=== PATIENT | female | born 1965 | race Caucasian/White ===

== ENCOUNTER → 2020-01-01 11:04 | Outpatient (BNVA) | payer OTHER, SELFPAY | PROVIDERS: Family Provider Family Medicine; Visit Provider Obstetrics & Gynecology | DX: R32 Unspecified urinary incontinence (principal) | CPT/HCPCS: 81000 ==

== ENCOUNTER 2020-01-30 06:15 | Day surgery (SDC) | payer OTHER, SELFPAY ==
[2020-01-28 12:02] VITALS: BMI 25.0
--- NOTE | 2020-01-28 12:18 | P.ANESASSM_ITS ---
Pre-Anesthetic Assessment Pre-Anesthetic Assessment: Height/Weight: Height 1.68 m Weight 70.307 kg Preop Diagnosis: Incontinence Proposed Procedure: Operation Date: 01/30/20 08:00 Proposed Procedures p midurethral single incision sling 67987 R32(Not Applicable) - Addison Alba MD Familial anesthetic complications: None Social: Social History: No alcohol and No tobacco Exam: Pre-Anes Outpt Exam: alert, oriented x 3, clear to auscultation rina aterally and regular rate & rhythm Airway: Cervical ROM: WNL MP: 2 Dentition: Full Pulmonary: Pulmonary: None reported CV/HEM: CV/HEM: None reported : : None reported Hepatic: Hepatic: None reported Musc/skel: Musc/skel: Lower Back Pain Neuropsych: Neuropsych: None reported Anesthetic Plan: ASA status: 1 Anesthesia: General Risk of > 500 ml blo od loss (7ml/kg in children): No PFSH Anesthesia PFSH: Medical History Anxiety Since 2018 controlled on medication by primary care provider No pertinent past medical history Denies: Heart, liver, lung, thyroid problems, diabetes, bleeding/clotting disorders, DVT/PE. PCP: Dr. Wayne Surgical History S/P hysterectomy Thinks it was a vaginal hysterectomy---[place] [address] Osorio due to prolapse and cysts. Ovaries were spared. S/P wisdom tooth extraction Status post surgery 1995-bladder prolapse surgery-no mesh was used Status post surgery Surgery on finger on the right hand. 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
[2020-01-30] VITALS (15 sets, daily range): BP systolic 105–150; BP diastolic 47–91; PULSE 49–84; RESP 12–18; TEMP 36.1–36.9; O2SAT 49–100
[2020-01-30 06:58] LABS: Basophils % 0.3 %; Eosinophils # 0.2 10^3/uL (0.0-0.8); Eosinophils % 2.8 %; Hematocrit 44.4 % (37.0-47.0); Hemoglobin 14.6 g/dL (11.5-15.3); Lymphocytes # 2.3 10^3/uL (0.8-4.8); Lymphocytes % 34.5 %; Mean Corpuscular HGB Conc 32.9 g/dL (30.0-36.0); Mean Corpuscular Hemoglobin 30.2 pg (28.0-34.0); Mean Corpuscular Volume 91.7 fL (81-99); Mean Platelet Volume 11.1 fL (7.4-10.4); Monocytes # 0.3 10^3/uL (0.2-0.9); Monocytes % 4.7 %; Neutrophils # 3.75 10^3/uL (1.8-7.7); Neutrophils % 57.4 %; Nucleated Red Blood Cells % 0 %; Platelet Count 245 10^3/cmm (130-400); Red Blood Count 4.84 10^6/uL (4.1-5.3); Red Cell Distribution Width 12.3 % (12.1-15.1); White Blood Count 6.5 10^3/uL (4.0-10.0)
[2020-01-30] MEDS: midazolam 1 mg/mL INJ 2 mL 2 MG IVP (07:07)
[2020-01-30] MEDS: sodium chloride 0.9% 1,000 ML 30 ML IV (07:07)
--- NOTE | 2020-01-30 07:15 | W.PM.OPSUD ---
Surgery/Procedure H&P Update DATE OF PROCEDURE: January 30, 2020 DATE H&P PERFORMED: 01/28/20 H&P UPDATE INFORMATION: I have reviewed H&P completed within last 30 days, I have examined patient prior to procedure, No changes to prior documentation and H&P is in [facility] EMR on date indicated PREOP DIAGNOSIS: stress incontinence PLANNED PROCEDURE: Operation Date: 01/30/20 08:00 Proposed Procedures p midurethral single incision sling 35910 R32(Not Applicable) - Addison Mcclain MD
--- NOTE | 2020-01-30 08:03 | P.ANESUD_ITS ---
Pre-Anesthetic Update Pre-Anesthetic Assessment: Date of Surgery/Procedure: 01/30/20 Preop Shalonda gnosis: stress incontinence Proposed Procedure: Operation Date: 01/30/20 08:00 Proposed Procedures p midurethral single incision sling 29395 R32(Not Applicable) - Addison Alba MD Any changes to Pre-Anesthetic Assessment?: No Last Intake: Intake Last Liquid Date 01/29/20 Last Liquid Time 21:00 Last Solid Date 01/29/20 Last Solid Time 21:00 Labs Last 48hrs: Laboratory Results - last 48 hr 01/30/20 06:48 WBC 6.5 RBC 4.84 Hgb 14.6 Hct 44.4 MCV 91.7 MCH 30.2 MCHC 32.9 RDW 12.3 Plt Count 245 MPV 11.1 H Neut % (Auto) 57.4 Lymph % (Auto) 34.5 [place] % (Auto) 4.7 Eos % (Auto) 2.8 Baso % (Auto) 0.3 Neut # (Auto) 3.75 Lymph # (Auto) 2.3 [place] # (Auto) 0.3 Eos # (Auto) 0.2 Baso # (Auto) 0.0 Nucleated RBC % (a uto) 0 Nucleated RBCs # 0.0 Vitals: Temperature 98.2 F 01/30/20 06:24 Temperature Source Temporal Artery S can 01/30/20 06:24 Pulse Rate 84 01/30/20 06:24 Pulse Rhythm 01/30/20 06:24 Pulse Strength 3+ Normal 01/30/20 06:24 Respiratory Rate 18 01/30/20 06:24 Blood Pressure 150/91 01/30/20 06:24 Blood Pressure Hannah n 110 01/30/20 06:24 Pulse Oximetry 100 01/30/20 06:24 Oxygen Delivery Me thod 01/30/20 06:24 Exam: Pre-Anes Outpt Exam: alert, oriented x 3, clear to auscultation bilaterally and regular rate & rhythm Cardiac Studies: No Data to Display
[2020-01-30] MEDS: vasopressin 20 unit/mL INJ INJECTION (08:20)
[2020-01-30] MEDS: fentaNYL 50 mcg/mL INJ 2mL IVP ×2 (09:02→09:07)
--- NOTE | 2020-01-30 10:00 | PM.OP ---
Operative Report Date of procedure: January 30, 2020 OPERATIVE REPORT Date of surgery:01/30/2020 Date of dictation: 01/30/2020 Preoperative diagnosis: Stress urinary incontinence Postoperative diagnosis/findings: Same, urethral hypermobility, grade 1 through 2 cystocele, grade 01 rectocele, grade 0-1 vault prolapse. On cystoscopy bilateral ureteral jets noted, no lesions defect or suture/mesh noted in bladder or urethra. Procedure done: Single incision suburethral sling Specimens removed/disposition of specimens: None Surgeon: Dr. Addison Roldan Ob/Gyn Physician: Jeanne Anesthesia: General endotracheal tube anesthesia Estimated blood loss: Less than 25 ml Intravenous fluids: 900 mL of LR Urine output: 300 ml clear urine at end of procedure Medications: As per anesthesia records, Pitressin Complications: None, patient was extubated and taken to the recovery room in a stable condition PROCEDURE: After consents were obtained, she was taken to the operating room where she was placed under general endotracheal tube anesthesia without any difficulty. She was placed supine on the table in lithotomy position. Her legs were placed in stirrups and care was taken to avoid pressure points. Exam under anesthesia revealed findings discussed above. She was then prepped and draped in usual sterile fashion. Sanchez catheter was placed and mid urethral point was marked. This area was injected with mixture of Pitressin and saline to aid with hydrodissection and hemostasis and the vaginal tissue over this area was incised in using a combination of both sharp and blunt dissection the vaginal tissue was up to the level of the pubic rami laterally at a 45? angle on both sides. This was done without difficulty. Some bleeding was noted hemostasis was achieved with pressure. The solyx single incision sling applicator was taken. The sling was loaded on to the introducer needle. Taking care to stay to 45? angle from the urethra and aiming towards the right obturator foramina and the introducer needle was passed until the needle pierced the endopelvic fascia and was into the obturator muscle. The mesh was detached from the introducer needle. This process was repeated on the left in a similar fashion. Care was taken to ensure that the mesh was snug under the urethra. Some bleeding was noted , after placement of mesh and pressure was held against the obturator and this bleeding stopped. Cystoscopy was performed with a 70? cystoscope and bilateral ureteral jets were visualized x 2 as well as no suture , lesion or mesh was noted in the bladder wall or urethra. Cystoscope was removed, bladder drained and Sanchez catheter was replaced.the vaginal mucosa over the sling placement was then sutured closed with 0 Vicryl suture in a continuous interlocking fashion for hemostasis. Given the bleeding noted the vagina was packed. Patient was extubated and taken to the recovery room in a stable condition. FOLLOW UP: Follow-up in 2 weeks and 6 weeks with surgeon MEDICATION ON DISCHARGE: Colace 100 mg by mouth every 12 hours when necessary constipation, 30 tablets, no refills Ibuprofen 800 mg by mouth every 8 hours when necessary pain, 60 tablets, no refills. [place] 5/325 mg 1 tablet by mouth every 6 hours when necessary pain,20 tablets, no refills Continue other home medication DISPOSITION: Home in a stable condition Pre-op Diagnosis: stress incontinence ON LICENSE OF [facility] Medical History Anxiety Since 2018 controlled on medication by primary care provider No pertinent past medical history Denies: Heart, liver, lung, thyroid problems, diabetes, bleeding/clotting disorders, DVT/PE. PCP: Dr. Wayne Surgical History (Updated 01/30/20 @ 10:13 by Addison Mcclain MD) History of suburethral sling procedure 01/30/2020--solyx single incision suburethral sling performed by Dr. Roldan at [facility]. S/P hysterectomy Thinks it was a vaginal hysterectomy---[place] [address] Osorio due to prolapse and cysts. Ovaries were spared. S/P wisdom tooth extraction Status post surgery 1995-bladder prolapse surgery-no mesh was used Status post surgery Surgery on finger on the right hand. 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
[2020-01-30] MEDS: sodium chloride 0.9% 1,000 ML 100 ML IV (10:15)
[2020-01-30] MEDS: ondansetron 2 mg/ML SDV 2 mL 4 MG IVP (10:20)
--- NOTE | 2020-01-30 11:21 | PC.NURSE ---
pt voided 30 ml in hat, then stated she also peed down her leg. residual per bladder scan was 50ml
--- NOTE | 2020-01-30 13:47 | PC.NURSE ---
residual urine per bladder scan was 50ml, dr garner notified
--- NOTE | 2020-01-30 13:50 | PC.NURSE ---
residual void per bladder scan was 74ml.
--- NOTE | 2020-01-30 13:56 | PC.NURSE ---
COBOS CATHETER PLACED PER DR GILBERT'S ORDERS AFTER RESULTS OF 2 RESIDUAL VOID TRIALS. PT TAUGHT COBOS CARE AND BAG URIBE BY DEMONSTRATION AND WRITTEN INSTRUCTIONS. PT STATED UNDERSTANDING AND THAT SHE HAS A DAUGHTER IN LAW WHO IS A NURSE THAT LIVES NEXT DOOR. LEG BAG GIVEN AND DEMONSTRATED ALSO
== END 2020-01-30 10:20 | disposition home or self-care (01) ==
PROVIDERS: PCP Family Medicine; Visit Provider Obstetrics & Gynecology
PROC: (CPT 57288; principal; 2020-01-30 08:00)
PROC: 0TJB8ZZ Inspection of Bladder, Via Natural or Artificial Opening Endoscopic (ICD-10-PCS; CPT 52000; 2020-01-30 08:00)
DX: N39.3 Stress incontinence (female) (male) (principal)
CPT/HCPCS: 57288; 12345; 36415; 85025; C1771; J0131; J0690; J1100; J2250; J2405; J2704; J2710; J3010; J3490; J7030

== ENCOUNTER 2020-09-28 14:34 | Outpatient (CLI) | payer OTHER, SELFPAY ==
--- NOTE | 2020-09-28 15:00 | MM_ITS ---
WS: [id number] SCREENING DIGITAL MAMMOGRAM WITH CAD HISTORY: Z12.39 - Encounter for other screening for malignant neoplasm of breast COMPARISON: 01/16/2019 and 08/17/2015 Bilateral CC and MLO views submitted. Computer aided detection analyzed. Breast composition: There are scattered areas of fibroglandular density. No suspicious masses, microc alcifications or architectural distortion. MM/[place] [id number] IMPRESSION: BI-RADS: 1-Negative FOLLOW UP: 1 Year Follow-up
== END 2020-09-28 14:35 | disposition home or self-care (01) ==
LOC: RADSHAW 14:40
PROVIDERS: PCP Family Medicine; Visit Provider Obstetrics & Gynecology
DX: Z12.31 Encounter for screening mammogram for malignant neoplasm of breast (principal)
CPT/HCPCS: 77067

== ENCOUNTER → 2022-12-15 13:43 | Outpatient (BNVA) | payer OTHER, SELFPAY | PROVIDERS: PCP Family Medicine; Visit Provider Family Medicine | DX: Z00.00 Encounter for general adult medical examination without abnormal findings (principal); Z13.6 Encounter for screening for cardiovascular disorders | CPT/HCPCS: 80053; 80061 ==

== ENCOUNTER → 2023-08-22 15:08 | Outpatient (BNVA) | payer OTHER, SELFPAY | PROVIDERS: PCP Family Medicine; Visit Provider Family Medicine | DX: R30.0 Dysuria (principal) | CPT/HCPCS: 81000 ==

== ENCOUNTER 2023-12-21 17:20 | Observation (INO) | payer OTHER, SELFPAY ==
[2023-12-21] VITALS (20 sets, daily range): BP systolic 162–198; BP diastolic 99–138; PULSE 57–108; RESP 10–26; TEMP 36.4–36.7; O2SAT 92–97; BMI 25.8; BMI 26.4
--- NOTE | 2023-12-21 17:22 | ECG_ITS ---
[facility] Test Date: 2023-12-21 Pat Name: Destinee Niño Department: Room: Gender: Female Functional Analyst: : 1965 Requested By: Ivette Julien Order Number: [id number] Vivian MD: Cuba Mosley M.D. Measurements Intervals [place] Rate: 96 P: 68 MD: 134 QRS: 53 QRSD: 88 T: 57 QT: 323 QTc: 410 Interpretive Statements SINUS RHYTHM MODERATE ST DEPRESSION [0.05+ mV ST DEPRESSION] No previous ECG available for comparison Electronically Signed On 12-22-2023 13:38:50 CDT by Cuba Mosley M.D. [email or web address] Genomicslawrence county hospitalimbookin ([place])[facility].[employer]ine[employer]/store/OM/[id number]/[id number]
--- NOTE | 2023-12-21 17:22 | XRR_ITS ---
PROCEDURE INFORMATION: Exam: XR Chest Exam date and time: 12/21/2023 6:10 PM Age: 58 years old Clinical indication: Pain; Dyspnea; Other: Possible a fib; Additional info: Cp, possible a-fib TECHNIQUE: Imaging protocol: Radiologic exam of the chest. Views: 1 view. COMPARISON: No relevant prior studies available. FINDINGS: Lungs: Unremarkable. No consolidation. Pleural spaces: Unremarkable. No pleural effusion. No pneumothorax. Heart/Mediastinum: Unremarkable. No cardiomegaly. Bones/joints: Unremarkable. XR/XR chest 1V portable [id number] IMPRESSION: No acute findings.
--- NOTE | 2023-12-21 17:30 | ECG_ITS ---
[facility] Test Date: 2023-12-21 Pat Name: Destinee Niño Department: Room: Gender: Female Leasing Machine Tender: : 1965 Requested By: Ivette Julien Order Number: [id number] Vivian MD: Cuba Mosley M.D. Measurements Intervals [place] Rate: 188 P: 0 LA: 0 QRS: 57 QRSD: 88 T: 0 QT: 218 QTc: 386 Interpretive Statements ATRIAL FLUTTER/TACHYCARDIA WITH RAPID VENTRICULAR RESPONSE MARKED ST DEPRESSION, CONSIDER SUBENDOCARDIAL INJURY [0.2+ mV ST DEPRESSION] Compared to ECG 12/21/2023 17:28:56 Sinus rhythm no longer present ST (T wave) deviation still present Electronically Signed On 12-22-2023 13:39:18 CDT by Cuba Mosley M.D. [email or web address] ? IO.CrowdRisegulf coast veterans health care systemIndustrial Technology Groupthe [facility].[employer]store/NU/[id number] f
--- NOTE | 2023-12-21 17:34 | W.ED.CHESTPA ---
HPI - Chest Pain General: Chief Complaint: Chest Pain Stated Complaint: chest pains Time Seen by Provider: 12/21/23 17:24 Source: patient Mode of arrival: ambulatory Limitations: no limitations History of Present Illness: 58-year-old female who states she has had palpitations today states she is felt like her heart skipped beat out of her chest at times. She denies any real pain just the palpitations. Patient appears to have paroxysmal A-fib or flutter her heart rate was originally in the 180s here is now slow down to the 90s at this time no history of A-fib she denies any shortness of breath. 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 No pertinent past medical history Denies diabetes, asthma, hypertension, seizures, DVT/PE PCP: Dr. Wayne Surgical History History of suburethral sling procedure 01/30/2020--solyx single incision suburethral sling performed by Dr. Roldan at [facility]. Status post surgery Surgery on finger on the right hand. cyst or growth removal after an inury S/P wisdom tooth extraction Status post surgery 1995-bladder prolapse surgery-no mesh was used S/P hysterectomy Thinks it was a vaginal hysterectomy---[place] [address] Osorio due to prolapse and cysts. Ovaries were spared. Family History Grandmother Hypertension maternal Hyperlipidemia maternal Grandfather Hypertension maternal Family/Other Breast cancer maternal great aunt Heart disease maternal uncle Denies family history of Colon cancer Ovarian cancer Diabetes Uterine cancer Thyroid disease Stroke Social History Smoking and tobacco/nicotine status: never used tobacco/nicotine Second hand smoke exposure: No Alcohol intake: unknown Substance/Drug Use: unknown Additional social history: = Adopted: No Caregiver/support person: No Lives independently: Yes Household members: spouse Housing: House Marital status: Number of children: 4 service: No Current occupational status: employed Current occupation: [employer] Pets and animals: No Do you think of yourself as: Straight/Heterosexual Current gender identity: Female Physical Exam Const: COMMON NORMALS: patient oriented x3 HENMT: COMMON NORMALS: normocephalic and atraumatic HEAD & SCALP: normocephalic and atraumatic Eye: COMMON NORMALS: Equal, round and reactive pupils present and EOMs intact bilaterally PUPIL: Yes Equal, round and reactive pupils present Neck/C-Spine: COMMON NORMALS: full ROM and supple Chest: COMMONS NORMALS: normal inspection of the chest Resp: COMMON NORMALS: normal respiratory effort, No retractions, No use of accessory muscles and clear to auscultation bilaterally AUSCULTATION: clear to auscultation bilaterally Cardio: COMMON NORMALS: No murmurs present (Cardio) RATE: tachycardic RHYTHM: abnormal rhythm irregularly irregular GI: COMMON NORMALS: Normal to inspection, nondistended, normoactive bowel sounds present, Soft to palpation, non-tender and no masses PALPATION: Yes Soft to palpation Extremity: COMMON NORMALS: normal to inspection and full ROM Neuro: COMMON NORMALS: patient oriented x3, moves all extremities and no focal motor deficits Psych: COMMON NORMALS: mental status grossly normal, Normal thought process present and cooperative THOUGHT PROCESS: Normal thought process present Skin: COMMON NORMALS: no rashes or lesions noted and no wounds GENERAL SKIN EXAM: no rashes or lesions noted Course Vital Signs: Vital signs: Vital Signs Temperature 97.6 F 12/21/23 17:27 Pulse Rate 75 12/21/23 19:45 Respiratory Rate 15 12/21/23 19:45 Blood Pressure 184/106 12/21/23 19:45 Pulse Oximetry 96 12/21/23 19:45 Oxygen Delivery Me thod Room Air 12/21/23 19:45 MDM - Chest Pain Medical Decision Making Patient presents with new onset A-fib likely paroxysmal A-fib she is converted here to have her on a Cardizem drip no known history of A-fib in the past I spoke to the hospitalist will admit at this time Medical Records I reviewed the patient's medical records. Lab Data I reviewed the patient's lab results. 12/21/23 17:37 12/21/23 17:37 Radiology Impressions Chest X-Ray 12/21/23 17:22 IMPRESSION: No acute findings. Laboratory Results WBC 11.20 10^3/uL (3.29-11.43) 12/21/23 17:37 RBC 5.35 10^6/uL (3.85-5.65) 12/21/23 17:37 Hgb 16.60 g/dL (11.27-16.99) 12/21/23 17:37 Hct 48.4 % (36-47) H 12/21/23 17:37 MCV 90.5 fl (85-98) 12/21/23 17:37 MCH 31.0 pg (27-33) 12/21/23 17:37 MCHC 34.3 g/dL (30-55) 12/21/23 17:37 RDW 12.5 % (12.1-15.1) 12/21/23 17:37 Plt Count 272 10^3/cmm (157-399) 12/21/23 17:37 MPV 10.7 fL (7.4-10.4) H 12/21/23 17:37 Neut % (Auto) 51.0 % 12/21/23 17:37 Lymph % (Auto) 40.2 % 12/21/23 17:37 [place] % (Auto) 5.8 % 12/21/23 17:37 Eos % (Auto) 2.3 % 12/21/23 17:37 Baso % (Auto) 0.4 % 12/21/23 17:37 Neut # (Auto) 5.72 10^3/uL (1.8-7.7) 12/21/23 17:37 Lymph # (Auto) 4.5 10^3/uL (0.8-4.8) 12/21/23 17:37 [place] # (Auto) 0.7 10^3/uL (0.2-0.9) 12/21/23 17:37 Eos # (Auto) 0.3 10^3/uL (0.0-0.8) 12/21/23 17:37 Baso # (Auto) 0.0 10^3/uL (0.0-0.1) 12/21/23 17:37 Nucleated RBC % (auto) 0 % 12/21/23 17:37 Nucleated RBCs # 0.0 /100WBC 12/21/23 17:37 Sodium 142 mmol/L (136-145) 12/21/23 17:37 Potassium 3.7 mmol/L (3.5-5.1) 12/21/23 17:37 Chloride 101 mmol/L (98-107) 12/21/23 17:37 Carbon Dioxide 27 mmol/L (22-29) 12/21/23 17:37 Anion Gap 17.7 (5-19) 12/21/23 17:37 BUN 10 mg/dL (6-20) 12/21/23 17:37 Creatinine 0.5 mg/dL (0.5-0.9) 12/21/23 17:37 GFR Calculation 127.6 mL/min (90-130) 12/21/23 17:37 Glucose 91 mg/dL (65-115) 12/21/23 17:37 Calculated Osmolality 293 mOsm/kg (285-295) 12/21/23 17:37 Calcium 11.1 mg/dL (8.5-10.5) H 12/21/23 17:37 Total Bilirubin 0.6 mg/dL (0.15-1.2) 12/21/23 17:37 AST 15 U/L (0-32) 12/21/23 17:37 ALT 13 U/L (0-33) 12/21/23 17:37 Alkaline Phosphatase 118 U/L (35-105) H 12/21/23 17:37 Troponin T Baseline 8 ng/L (0-10) 12/21/23 17:37 Total Protein 7.8 g/dL (6.6-8.7) 12/21/23 17:37 Albumin 4.8 g/dL (3.5-5.2) 12/21/23 17:37 Globulin 3.0 g/dL (1.3-4.6) 12/21/23 17:37 All radiology interpretation(s) finalized by discharge EKG Data EKG 1: I personally reviewed and interpreted this EKG as follows: EKG interpretation date: 12/21/23 EKG interpretation time: 17:30 Interpretation: atrial flutter hr [address] elevation qrs 188 qtc 315 EKG 2: I personally reviewed and interpreted this EKG as follows: EKG interpretation date: 12/21/23 EKG interpretation time: 17:37 Interpretation: nsr hr [address] elevation qrs 93 qtc 395 Discharge Plan Discharge Patient Disposition: Placed in Observation Admit Provider: Orville Crabtree Clinical Impression: Atrial fibrillation Coding Level of Care Code ED Honing Machine Set Up Operator Tool for Socorro Ambrocio
[2023-12-21] MEDS: dilTIAZem 5 mg/mL SDV 5 mL 10 MG IVP (17:44)
[2023-12-21] MEDS: dilTIAZem 100 MG in sodium chloride 0.9% (add-van) 100 ML IV (17:53)
[2023-12-21 17:55] LABS: Basophils % 0.4 %; Eosinophils # 0.3 10^3/uL (0.0-0.8); Eosinophils % 2.3 %; Hematocrit 48.4 % (36-47); Lymphocytes # 4.5 10^3/uL (0.8-4.8); Lymphocytes % 40.2 %; Mean Corpuscular HGB Conc 34.3 g/dL (30-55); Mean Corpuscular Volume 90.5 fl (85-98); Mean Platelet Volume 10.7 fL (7.4-10.4); Monocytes # 0.7 10^3/uL (0.2-0.9); Monocytes % 5.8 %; Neutrophils # 5.72 10^3/uL (1.8-7.7); Nucleated Red Blood Cells % 0 %; Platelet Count 272 10^3/cmm (157-399); Red Blood Count 5.35 10^6/uL (3.85-5.65); Red Cell Distribution Width 12.5 % (12.1-15.1)
[2023-12-21 18:17] LABS: Alanine Aminotransferase 13 U/L (0-33); Albumin Level 4.8 g/dL (3.5-5.2); Alkaline Phosphatase 118 U/L (35-105); Anion Gap 17.7 (5-19); Aspartate Amino Transferase 15 U/L (0-32); Blood Urea Nitrogen 10 mg/dL (6-20); Calcium 11.1 mg/dL (8.5-10.5); Carbon Dioxide 27 mmol/L (22-29); Chloride 101 mmol/L (98-107); Glomerular Filtration Rate 127.6 mL/min (90-130); Glucose 91 mg/dL (65-115); Osmolality Calculated 293 mOsm/kg (285-295); Potassium 3.7 mmol/L (3.5-5.1); Sodium 142 mmol/L (136-145); Total Bilirubin 0.6 mg/dL (0.15-1.2); Total Protein 7.8 g/dL (6.6-8.7)
[2023-12-21 19:19] LABS: Troponin(5th) Baseline 8 ng/L (0-10)
--- NOTE | 2023-12-21 19:22 | ECG_ITS ---
[facility] Test Date: 2023-12-21 Pat Name: Destinee Niño Department: Room: Gender: Female Jive Developer: : 1965 Requested By: Ivette Julien Order Number: [id number] Vivian MD: Cuba Mosley M.D. Measurements Intervals [place] Rate: 91 P: 71 RI: 136 QRS: 53 QRSD: 93 T: 55 QT: 346 QTc: 427 Interpretive Statements SINUS RHYTHM MODERATE ST DEPRESSION [0.05+ mV ST DEPRESSION] Compared to ECG 12/21/2023 17:30:46 Atrial flutter no longer present ST (T wave) deviation still present Electronically Signed On 12-22-2023 13:59:46 CDT by Cuba Mosley M.D. [email or web address]TapHomeregency meridianTarpon Towersholmes [facility].Design A/store/NU/[id number] f
--- NOTE | 2023-12-21 19:40 | PM.HP ---
Providers/Chief Complaint Admitting Physician: Orville Crabtree MD Primary Care Provider: Tyler Wayne DO Chief Complaint: chest pains History of Present Illness Destinee Niño is a 58 year old female who presents for further evaluation of palpitations. this has been ongoing on/off for some time associated with chest discomfort and dizziness. She denies shortness of breath, cough, fever, chills, or any other symptoms. In the ER, she was found to have atrial fibrillation with RVR. She has no prior diagnosis of a. fib in the past. She was started on diltiazem infusion and had improvement in her heart rate. Review of Systems Const: Denies: fever(s), chills, body aches or change in appetite ENMT: Denies: throat pain or dental pain Card: Reports: palpitations and irregular heart rhythm Resp: Denies: dyspnea GI: Denies: abdominal pain, nausea, vomiting or diarrhea : Denies: dysuria Musc: Denies: neck pain or back pain Skin/Breast: Denies: rash Neuro: Denies: headache(s) Psych: Denies: depression All/Imm: Denies: acute wheezing Medications/Allergies Home Medications Medication Instructions Recorded Confirmed Last Taken Type diazepam 2 mg tablet 3 mg (1.5 x 2 mg) PO QID PRN 09/17/22 12/21/23 Unknown Rx anxiety #120 tabs conjugated estrogens 0.625 mg 0.625 mg PO DAILY #90 tabs 02/06/23 12/21/23 Unknown Rx tablet hydroxyzine HCl 25 mg tablet 25 mg PO TID PRN itching #20 tabs 12/15/23 12/21/23 Unknown Rx prednisone 20 mg tablet 40 mg (2 x 20 mg) PO DAILY contact 12/15/23 12/21/23 Unknown Rx dermatis 5 days #10 tabs Allergies Allergy/AdvReac Type Severity Reaction Status Date / Time No Known Allergies Allergy Verified 12/15/23 08:41 PFSH Acute PFSH: Medical History Contact dermatitis and eczema due to plant History of nonmelanoma skin cancer Community acquired pneumonia Menopausal symptoms Anxiety Since 2017 controlled on medication by primary care provider--weaned herself off of the medication in 2020--has not yet seen a therapist. No pertinent past medical history Denies diabetes, asthma, hypertension, seizures, DVT/PE PCP: Dr. Wayne Surgical History History of suburethral sling procedure 01/30/2020--solyx single incision suburethral sling performed by Dr. Roldan at [facility]. Status post surgery Surgery on finger on the right hand. cyst or growth removal after an inury S/P wisdom tooth extraction Status post surgery 1995-bladder prolapse surgery-no mesh was used S/P hysterectomy Thinks it was a vaginal hysterectomy---[place] [address] Osorio due to prolapse and cysts. Ovaries were spared. Family History Grandmother Hypertension maternal Hyperlipidemia maternal Grandfather Hypertension maternal Family/Other Breast cancer maternal great aunt Heart disease maternal uncle Denies family history of Colon cancer Ovarian cancer Diabetes Uterine cancer Thyroid disease Stroke Social History Smoking and tobacco/nicotine status: never used tobacco/nicotine Second hand smoke exposure: No Alcohol intake: unknown Substance/Drug Use: unknown Additional social history: = Adopted: No Caregiver/support person: No Lives independently: Yes Household members: spouse Housing: House Marital status: Number of children: 4 service: No Current occupational status: employed Current occupation: [employer] Pets and animals: No Do you think of yourself as: Straight/Heterosexual Current gender identity: Female Vitals/I&O/Wt Last Vital Signs Temp 97.6 F 12/21/23 17:27 Pulse 81 12/21/23 18:55 Resp 12 12/21/23 18:55 BP 198/120 12/21/23 18:55 Pulse Ox 97 12/21/23 18:55 O2 Del Method Room Air 12/21/23 18:55 Weight last 48 hrs Weight 72.575 kg Physical Exam Const: COMMON NORMALS: no acute distress, patient oriented x3 and alert HENMT: COMMON NORMALS: normocephalic, atraumatic, external ears normal, Normal external nose present, moist oral mucous membranes and oropharynx normal HEAD & SCALP: normocephalic and atraumatic NOSE: Normal external nose present EXTERNAL EAR: Yes external ears normal Eye: COMMON NORMALS: Equal, round and reactive pupils present, EOMs intact bilaterally, conjunctivae normal and no scleral icterus CONJUNCTIVA: Yes conjunctivae normal PUPIL: Yes Equal, round and reactive pupils present Neck/C-Spine: COMMON NORMALS: full ROM, no lymphadenopathy and no JVD Chest: COMMONS NORMALS: normal inspection of the chest Resp: COMMON NORMALS: normal respiratory effort and clear to auscultation bilaterally AUSCULTATION: clear to auscultation bilaterally OTHER: No wheezes or crcakles Cardio: COMMON NORMALS: no JVD, regular rate, regular rhythm, S1 normal heart sound present and S2 normal heart sound present RATE: regular rate RHYTHM: regular rhythm HEART SOUNDS: S1 normal heart sound present and S2 normal heart sound present GI: COMMON NORMALS: Normal to inspection, nondistended, normoactive bowel sounds present, Soft to palpation and non-tender PALPATION: Yes Soft to palpation Extremity: COMMON NORMALS: normal to inspection and no pedal edema Neuro: COMMON NORMALS: patient oriented x3 SENSORIUM/ORIENTATION: Yes alert OTHER: No gross focal deficits Data 12/21/23 17:37 12/21/23 17:37 A&P Assessment and plan (1) Atrial fibrillation: #New onset ,patient has no prior diagnosis -She is currently on diltiazem infusion started in the ER. HR currently controlled, patient now in sinus rhythm -Start metoprolol 25mg, wean diltiazem infusion as appropriate -Her Chadvasc score is 2 - for female sex, HTN will start apixaban -Check TTE -Consult cardiology as appropriate -Telemetry monitoring (2) Elevated troponin: -Likely due to increased demand in the setting of A.fib with RVR -Patient had some chest discomfort during RVR which is currently resolved -EKG - no STEMI -Check serial troponin if significantly trending up will initiate heparin infusion (3) Hypertension: -She reports that she was on lisinopril in the past, but she was taken off the medication -Her BP is on the high side -Start lisinopril and uptitrate dose as appropriate Attestations Medical Necessity Statement*: Patient admitted for atrial fibrillation with RVR. Her care is not expected to cross greater than 2 midnights. Coding Level of Care Code Acute Code for [facility] Diagnoses Atrial fibrillation I48.91 Elevated troponin R79.89 Hypertension I10
[2023-12-21 19:56] LABS: Troponin 5 2HR 18.41 ng/L (0-10)
[2023-12-21 20:07] LABS: Troponin 5 2HR Delta 10.41 ABS# (0-10)
[2023-12-21] MEDS: metoprolol tartrate 25 mg Tablet PO (20:56)
--- NOTE | 2023-12-21 21:39 | USCV_ITS ---
Destinee Niño Age: 58 Gender: F : 1965 Exam Date: 12/21/2023 23:48 Ordering Phys: Orville Crabtree MD Technologist: GONZALO Exam Location: [facility] [place] Indication: afib, No history of prior afib. No history of cardiac intervention. BP: 184 / 110 HR: 52 Rhythm: Sinus Technical Quality: Adequate MEASUREMENTS (Male / Female) Normal Values 2D ECHO LV Diastolic Diameter PLAX 3.6 cm 4.2 - 5.9 / 3.9 - 5.3 cm IVS Diastolic Thickness 1.7 cm 0.6 - 1.0 / 0.6 - 0.9 cm IVS Systolic Thickness 1.9 cm LVPW Diastolic Thickness 1.2 cm 0.6 - 1.0 / 0.6 - 0.9 cm LVPW Systolic Thickness 1.8 cm LVOT Diameter 1.9 cm LV Ejection Fraction 2D Teich 60.6 % LV Ejection Fraction MOD 2C 53.1 % LV Ejection Fraction 2C AL 55.4 % LA Diameter 4.2 cm Aorta at Sinotubular Diameter 2.9 cm IVC Diameter 1.6 cm M-MODE LA Ao Ratio MM 1.5 AV Cusp Separation MM 1.8 cm DOPPLER AV Peak Velocity 140.0 cm/s LVOT Peak Velocity 105.0 cm/s AV Area Cont Eq vti 2.7 cm squared AV Area Cont Eq pk 2.1 cm squared MV Peak Velocity 83.0 cm/s MV Area PHT 3.3 cm squared Mitral E to A Ratio 1.3 TR Peak Velocity 227.0 cm/s TR Peak Gradient 20.6 mmHg TV Peak E Velocity 33.0 cm/s Right Atrial Pressure 3.0 mmHg Pulmonary Artery Systolic Pressu 23.6 mmHg PV Peak Velocity 85.0 cm/s FINDINGS Left Ventricle Normal left ventricular size, systolic function and wall thickness, with no regional wall motion abnormalities. Normal left ventricular wall thickness. Normal diastolic filling pattern. Left ventricular ejection fraction is estimated at 60 %. Right Ventricle The right ventricle is normal in size and function. Right Atrium The right atrium is normal in size. Left Atrium The left atrium is normal in size. Mitral Valve Structurally normal mitral valve without significant stenosis or prolapse. There is no mitral regurgitation. Aortic Valve Structurally normal aortic valve without significant sclerosis or stenosis. There is no aortic regurgitation. Tricuspid Valve Structurally normal tricuspid valve. Trace tricuspid valve regurgitation. Pulmonic Valve Pulmonic valve not well visualized. Trace pulmonary valve regurgitation. Pericardium Normal pericardium without effusion. Aorta Normal ascending aorta dimension. IVC The inferior vena cava appears normal. CONCLUSIONS Normal transthoracic echocardiogram. There are no prior echocardiogram studies to compare. Dr. Cuba Mosley MD (Electronically Signed) Final Date: 23 December 2023 11:11 S
[2023-12-21] MEDS: lisinopril 5 mg Tablet PO (21:45)
--- NOTE | 2023-12-21 23:22 | ECG_ITS ---
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 Measurements Intervals [place] Rate: 53 P: 60 MT: 145 QRS: 30 QRSD: 94 T: 38 QT: 446 QTc: 422 Interpretive Statements SINUS BRADYCARDIA Compared to ECG 12/21/2023 17:37:38 Sinus rhythm no longer present ST (T wave) deviation no longer present Electronically Signed On 12-22-2023 14:00:53 CDT by Cuba Mosley M.D. [id number]
[2023-12-22 01:47] VITALS: BP 148/87; PULSE 47; RESP 16; O2SAT 96
[2023-12-22 01:53] LABS: Troponin 5 6HR 15.05 ng/L (0-10); Troponin 5 6HR Delta 7.05 ng/L (0-12)
[2023-12-22 04:10] VITALS: BP 145/90; PULSE 48; RESP 18; TEMP 36.6; O2SAT 96
[2023-12-22 05:58] VITALS: BMI 26.4
[2023-12-22 06:00] VITALS: PULSE 45
[2023-12-22 08:00] VITALS: BP 149/92; PULSE 54; RESP 16; TEMP 36.7; O2SAT 99
--- NOTE | 2023-12-22 08:53 | PC.CHAP ---
Pastoral Care Encounter/Spiritual Assessment Type of Contact [] Declined systems integrator visit [] Patient/Family/Request visit [] Outpatient visit [] Follow-up visit [] Physician referral [] Code/Alert [x] Routine visit [] Staff referral [] Actively dying [] Patient sleeping [x] Family support [] [] Out of room [] Palliative care [] [] Receiving care in room [] Pre-surgical visit [] Trauma [] Long length of stay [] ICU visit [] Other: Relational/Emotional Strength [x] Patient feels connected with others/family/visitors/staff [] Distress [] Loneliness/isolation [] Abandonment Spirituality of Patient [] Person of Sharona [] Attends Taoism of their Sharona [] Believes in Prayer [] Reads Bible or Pentecostalism materials [x] There are Spiritual issues to be addressed Curtain Framer Interventions [] Prayer [x] Active listening [x] Non-anxious presence [] Spiritual/emotional support [] Crisis/trauma care [] Spiritual counseling [] Bereavement support [] Provided bereavement packet [] Provided Bible/devotional materials [] Provided toy/stuffed animal, coloring book to patient or family member [] Provided Communion [] Anointing/Chapman [] Salvation [] Completed spiritual assessment [x] Other:Refused prayer Impact on Illness or Injury [] Angry [] Fearful [] Anxious [] Often cries [] Exhaustion [] Unable to work [] Unable to attend voodoo [] Unable to walk/stand [] Unable to read [] Unable to drive [] Unable to eat/drink [] Unable to sleep [] Unable to be with family [] Patient intubated [] Other: Summary Time spent with patient 5 min
[2023-12-22 09:03] LABS: Magnesium 2.1 mg/dL (1.7-2.3); Thyroid Stimulating Hormone 3.12 uIU/mL (0.27-4.20)
--- NOTE | 2023-12-22 09:03 | P.DS_ITS ---
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 Patient is stating that she has had similar presentations in the past when her heart rate got better spontaneously. She is not taking blood pressure medications anymore, her Jose Vascor is only 1 for her history of hypertension, I have asked her to take aspirin at this point, she is willing to take low-dose lisinopril. At this point she does not need anticoagulating agent I am reluctant to add AV toña blocking agent because of her bradycardia, I will have her follow-up with PCP to see if she would need further screening for sick sinus syndrome. Patient is stating that she is struggling with her sleep cycle she is not able to go to sleep and then she wakes up around 3 AM endorsing stressors in her life. I have encouraged her to discuss with her primary care physician to see if she would benefit from a low-dose antidepressant/benzodiazepine at nighttime. Troponin trending down, TSH is normal. Potassium and magnesium within normal range Physical Exam Narrative: Awake alert Euvolemic GCS 15 Pleasant cooperative Discharge Data Studies Completed and Pending Completed Studies During Hospitalization Category Date Time Status XR chest 1V portable [id number] Stat Exams 12/21/23 17:22 Completed Pending at discharge Category Date Time Status D Dimer Stat Lab 12/22/23 08:13 Received US echo complete [CV. echo complete* [id number]] Routine Ultrasound 12/21/23 21:39 Taken Radiology Impressions Chest X-Ray 12/21/23 17:22 IMPRESSION: No acute findings. Laboratory Results WBC 11.20 10^3/uL (3.29-11.43) 12/21/23 17:37 RBC 5.35 10^6/uL (3.85-5.65) 12/21/23 17:37 Hgb 16.60 g/dL (11.27-16.99) 12/21/23 17:37 Hct 48.4 % (36-47) H 12/21/23 17:37 MCV 90.5 fl (85-98) 12/21/23 17:37 MCH 31.0 pg (27-33) 12/21/23 17:37 MCHC 34.3 g/dL (30-55) 12/21/23 17:37 RDW 12.5 % (12.1-15.1) 12/21/23 17:37 Plt Count 272 10^3/cmm (157-399) 12/21/23 17:37 MPV 10.7 fL (7.4-10.4) H 12/21/23 17:37 Neut % (Auto) 51.0 % 12/21/23 17:37 Lymph % (Auto) 40.2 % 12/21/23 17:37 Gage % (Auto) 5.8 % 12/21/23 17:37 Eos % (Auto) 2.3 % 12/21/23 17:37 Baso % (Auto) 0.4 % 12/21/23 17:37 Neut # (Auto) 5.72 10^3/uL (1.8-7.7) 12/21/23 17:37 Lymph # (Auto) 4.5 10^3/uL (0.8-4.8) 12/21/23 17:37 Gage # (Auto) 0.7 10^3/uL (0.2-0.9) 12/21/23 17:37 Eos # (Auto) 0.3 10^3/uL (0.0-0.8) 12/21/23 17:37 Baso # (Auto) 0.0 10^3/uL (0.0-0.1) 12/21/23 17:37 Nucleated RBC % (auto) 0 % 12/21/23 17:37 Nucleated RBCs # 0.0 /100WBC 12/21/23 17:37 Sodium 142 mmol/L (136-145) 12/21/23 17:37 Potassium 3.7 mmol/L (3.5-5.1) 12/21/23 17:37 Chloride 101 mmol/L (98-107) 12/21/23 17:37 Carbon Dioxide 27 mmol/L (22-29) 12/21/23 17:37 Anion Gap 17.7 (5-19) 12/21/23 17:37 BUN 10 mg/dL (6-20) 12/21/23 17:37 Creatinine 0.5 mg/dL (0.5-0.9) 12/21/23 17:37 GFR Calculation 127.6 mL/min (90-130) 12/21/23 17:37 Glucose 91 mg/dL (65-115) 12/21/23 17:37 Calculated Osmolality 293 mOsm/kg (285-295) 12/21/23 17:37 Calcium 11.1 mg/dL (8.5-10.5) H 12/21/23 17:37 Magnesium 2.1 mg/dL (1.7-2.3) 12/22/23 08:13 Total Bilirubin 0.6 mg/dL (0.15-1.2) 12/21/23 17:37 AST 15 U/L (0-32) 12/21/23 17:37 ALT 13 U/L (0-33) 12/21/23 17:37 Alkaline Phosphatase 118 U/L (35-105) H 12/21/23 17:37 Troponin T Baseline 8 ng/L (0-10) 12/21/23 17:37 Troponin T 120 Minute 18.41 ng/L (0-10) H 12/21/23 19:27 Delta Troponin T 10.41 ABS# (0-10) H* 12/21/23 19:27 Troponin T Hi Sens 6Hr 15.05 ng/L (0-10) H 12/22/23 01:21 Troponin T Hi Sens 6Hr Delta 7.05 ng/L (0-12) 12/22/23 01:21 Total Protein 7.8 g/dL (6.6-8.7) 12/21/23 17:37 Albumin 4.8 g/dL (3.5-5.2) 12/21/23 17:37 Globulin 3.0 g/dL (1.3-4.6) 12/21/23 17:37 TSH 3.12 uIU/mL (0.27-4.20) 12/22/23 08:13 Vitals Last Vital Signs Temp 98.0 F 12/22/23 08:00 Pulse 54 L 12/22/23 08:00 Resp 16 12/22/23 08:00 BP 149/92 12/22/23 08:00 Pulse Ox 99 12/22/23 08:00 O2 Del Method Room Air 12/22/23 08:00 Discharge Plan Discharge Patient Disposition: Home Condition: Stable Prescriptions: New metoprolol tartrate 25 mg Tablet 25 mg PO BID@0900,2100 Qty: 10 0RF lisinopril 5 mg Tablet 5 mg PO DAILY Qty: 90 1RF aspirin 81 mg tablet,chewable 81 mg PO DAILY Qty: 60 2RF escitalopram oxalate 20 mg tablet 20 mg PO DAILY Qty: 60 3RF Continued conjugated estrogens 0.625 mg tablet 0.625 mg PO DAILY Qty: 90 3RF diazepam 2 mg tablet 3 mg PO QID PRN (Reason: anxiety) Qty: 120 3RF Discontinued prednisone 20 mg tablet 40 mg PO DAILY 5 Days Qty: 10 0RF hydroxyzine HCl 25 mg tablet 25 mg PO TID PRN (Reason: itching) Qty: 20 0RF Referrals: Tyler Wayne DO [Primary Care Provider] - 4-7 days Patient Instructions: Opioid Safety Activity Restrictions/Additional Instructions: In case you notice palpitations and a heart rate is above 100 you can take metoprolol on as-needed basis You do not have to take Metroprolol on daily basis as of now because your heart rate is below 60 Which is considered bradycardia My concern will be related to sick sinus syndrome for which you probably will need outpatient cardiology evaluation currently follow-up with your PCP Regarding her insomnia I do think it is related to stress/depression I am adding esCitalopram 20 mg daily It roughly take 3 to 4 months for you to see the effect For your blood pressure I am adding lisinopril Target blood pressure is 130/80 mmhg Discharge Attestations Time Spent in Discharge Care*: greater than 30 min Quality Metrics Clinical Quality Measures [ No reported AMI, CVA or VTE this stay] Coding Level of Care Code Acute Code for g Fwd Diagnoses Atrial fibrillation I48.91 Elevated troponin R79.89 Hypertension I10
[2023-12-22] MEDS: metoprolol tartrate 25 mg Tablet PO (09:13)
[2023-12-22] MEDS: lisinopril 5 mg Tablet PO (09:13)
[2023-12-22] MEDS: apixaban 5 mg Tablet PO (09:13)
[2023-12-22 09:14] LABS: D Dimer 0.36 ug/mLFEU (0-0.59)
[2023-12-22 11:29] VITALS: BP 136/85; PULSE 44; RESP 16; TEMP 36.6; O2SAT 98
[2023-12-22 12:16] VITALS: BP 136/85; PULSE 44; RESP 16; TEMP 36.6; O2SAT 98
--- NOTE | 2023-12-22 12:45 | PC.NURSE ---
Pt refused lunch because she was served Tuna Fish casserole and said that she informed them when they took her order this morning that she did not want the Tuna Fish because she does not like it.
--- NOTE | 2023-12-22 12:47 | PC.NURSE ---
Discharge Note Patient discharged to [home] via [ambulation] accompanied by [the Nurse Tech]. Discharge instructions reviewed with patient and/or home furnishings sales representative. Mobile pharmacy medications and/or prescriptions provided. Belongings/home medications returned.
== END 2023-12-22 12:48 | disposition home or self-care (01) ==
LOC: ER 19:12 → CSU 19:34
PROVIDERS: Admitting Provider Student in an Organized Health Care Education/Training Program; Emergency Provider Emergency Medicine; PCP Family Medicine; Visit Provider Internal Medicine
DX: I48.91 Unspecified atrial fibrillation (principal); R79.89 Other specified abnormal findings of blood chemistry; I10 Essential (primary) hypertension; R00.1 Bradycardia, unspecified
CPT/HCPCS: 12345; 36415; 71045; 80053; 83735; 84443; 84484; 85025; 85378; 93005; 93306; 96365; 96366; 96375; 99285; G0378; J3490

== ENCOUNTER 2024-04-25 13:59 | Outpatient (CLI) | payer OTHER, SELFPAY ==
[2024-04-25 14:16] LABS: Basophils % 0.3 %; Eosinophils # 0.2 10^3/uL (0.0-0.8); Eosinophils % 2.2 %; Hematocrit 41.6 % (36-47); Lymphocytes # 3.5 10^3/uL (0.8-4.8); Lymphocytes % 39.2 %; Mean Corpuscular HGB Conc 34.9 g/dL (30-55); Mean Corpuscular Hemoglobin 32.2 pg (27-33); Mean Corpuscular Volume 92.4 fl (85-98); Mean Platelet Volume 10.1 fL (7.4-10.4); Monocytes # 0.5 10^3/uL (0.2-0.9); Monocytes % 5.9 %; Neutrophils % 52.2 %; Nucleated Red Blood Cells % 0 %; Platelet Count 263 10^3/cmm (157-399); Red Cell Distribution Width 11.9 % (12.1-15.1); White Blood Count 8.81 10^3/uL (3.29-11.43)
[2024-04-25 14:53] LABS: Anion Gap 14.9 (5-19); Blood Urea Nitrogen 10 mg/dL (6-20); Calcium 10.1 mg/dL (8.5-10.5); Carbon Dioxide 24 mmol/L (22-29); Chloride 100 mmol/L (98-107); Glomerular Filtration Rate 103.4 mL/min (90-130); Glucose 87 mg/dL (65-115); NT Pro B Type Natriuretic Pept < 36 pg/mL (0-125); Osmolality Calculated 278 mOsm/kg (285-295); Potassium 3.9 mmol/L (3.5-5.1); Sodium 135 mmol/L (136-145); Thyroid Stimulating Hormone 3.39 uIU/mL (0.27-4.20)
== END 2024-04-25 14:00 | disposition home or self-care (01) ==
LOC: LAB 14:01
PROVIDERS: PCP Family Medicine; Visit Provider Internal Medicine Cardiovascular Disease
DX: I48.0 Paroxysmal atrial fibrillation (principal); I10 Essential (primary) hypertension
CPT/HCPCS: 36415; 80048; 83880; 84443; 85025

== ENCOUNTER → 2024-06-17 15:09 | Outpatient (BNVA) | payer OTHER, SELFPAY | PROVIDERS: PCP Family Medicine | DX: R39.9 Unspecified symptoms and signs involving the genitourinary system (principal); R30.0 Dysuria | CPT/HCPCS: 81000 ==

== ENCOUNTER → 2025-02-03 09:21 | Outpatient (BNVA) | payer BC, SELFPAY | PROVIDERS: PCP Family Medicine | DX: N39.0 Urinary tract infection, site not specified (principal); R30.0 Dysuria | CPT/HCPCS: 81000 ==

== ENCOUNTER → 2025-03-12 17:02 | Outpatient (BNVA) | payer BC, SELFPAY | PROVIDERS: PCP Family Medicine; Visit Provider Emergency Medicine | DX: R39.9 Unspecified symptoms and signs involving the genitourinary system (principal); R30.0 Dysuria | CPT/HCPCS: 81000; 87086 ==

== ENCOUNTER → 2025-04-24 14:45 | Outpatient (BNVA) | payer BC, SELFPAY | PROVIDERS: PCP Family Medicine; Visit Provider Internal Medicine Cardiovascular Disease | DX: Z53.9 Procedure and treatment not carried out, unspecified reason (principal) | CPT/HCPCS: 93005 ==